=== PATIENT | female | born 1985 | race African-American/Black ===

== ENCOUNTER 2016-09-15 14:40 | Emergency (ER) | payer MEDICAID, OTHER ==
[~2016-09-15] VITALS: Ht 175.3 cm; Wt 68.0 kg
[~2016-09-15 14:40] MED LIST: CYCL1TAB29 PO; IBUP600T26 PO; MOTR200T4 PO; ROBA750T3 PO
[2016-09-15 14:41] VITALS: BP 119/67; PULSE 72; RESP 16; TEMP 99; O2SAT 100
--- NOTE | 2016-09-15 15:03 | PD ---
Physical Exam Date Seen by Provider: Sep 15, 2016 Time Seen by Provider: 14:53 Narrative 31 y/o female presents with 1 week history right upper jaw pain extending into the right ear for the past week. Patient denies fever, chills, or difficulty swallowing. Patient has Hx. [place] tooth pain. Pain worse at night and first AM. Worse with Chewing. V/S Stable. Patient awaiting Bed placement. Data Data Last Documented VS Vital Signs Date Time Temp Pulse Resp B/P Pulse Ox O2 Delivery O2 Flow Rate FiO2 09/15/16 14:41 99.0 72 16 119/67 100 Room Air [facility] Medical Record Reviewed: Yes Supervised Visit with JHON: Yes Condition: Stable Ramez Dillon Sep 15, 2016 15:03
[2016-09-15] MEDS ORDERED: PERI0.126 SWISH-SPIT (15:13)
[2016-09-15] MEDS ORDERED: CLIN1CAP5 PO (15:13)
[2016-09-15] MEDS ORDERED: IBUP800T23 PO (15:13)
--- NOTE | 2016-09-15 15:14 | PD ---
HPI Chief Complaint: Oral / Dental Pain or Problem Time Seen by Provider: 15:12 Travel History International Travel<30 days: No Contact w/Intl Traveler<30days: No Traveled to known affect area: No History of Present Illness HPI 31-year-old female presents to the emergency Department with complaint of right upper tooth pain times one week. Denies fever, chills, nausea, vomiting. Denies facial edema or erythema. Pain is worse with chewing. Pain radiates to the right ear. Allergies to amoxicillin and penicillin. No other modifying factors or associated signs and symptoms. PFSH Past Medical History Anxiety: Yes ?: Not : 5 Para: 5 Miscarriage: 1 Tubal Ligation: Yes Past Surgical History Other Surgery: No Social History Alcohol Use: Yes (SOCIALLY) Tobacco Use: Yes (05/28 PPD) Substance Use: No (DENIES) Allergies-Medications (Allergen,Severity, Reaction): Coded Allergies: Amoxicillin (Verified Allergy, Severe, Shortness of Breath, 06/28/14) Penicillin (Verified Allergy, Severe, Anaphylaxis, 06/28/14) Reported Meds & Prescriptions Reported Meds & Active Scripts Active Peridex Liq (Chlorhexidine Gluconate (Mouth) Liq) 0.12% Soln 15 Ml SWISH-SPIT BID 10 Days Ibuprofen 800 Mg Tab 800 Mg PO Q6HR PRN Clindamycin (Clindamycin HCl) 150 Mg Cap 450 Mg PO Q6H 10 Days Motrin Ib (Ibuprofen) 200 Mg Tab 600 Mg PO Q6H PRN Flexeril (Cyclobenzaprine HCl) 10 Mg Tab 10 Mg PO TID PRN Robaxin-750 (Methocarbamol) 750 Mg Tab 750 Mg PO QID PRN Ibuprofen 600 Mg Tab 600 Mg PO TID PRN Review of Systems Except as stated in HPI: all other systems reviewed are Neg Physical Exam Narrative GENERAL: Well-nourished, well-developed female patient, in no acute distress; afebrile, nontoxic-appearing SKIN: Warm and dry. HEAD: Atraumatic. Normocephalic. No facial edema, erythema, tenderness on palpation. No lymphadenopathy. EYES: Pupils equal and round. No scleral icterus. No injection or drainage. ENT: Mucosa pink and moist. Airway patent. MOUTH: Mucous membranes moist, no lesions, tongue and gums appear normal. Right upper dentalgia with multiple dental caries; right upper third molar with large dental caries and tenderness on palpation; surrounding gingiva is without erythema, edema, drainage; no obvious abscess noted. NECK: Trachea midline. No lymphadenopathy. CARDIOVASCULAR: Regular rate. RESPIRATORY: No accessory muscle use. GASTROINTESTINAL: Flat. MUSCULOSKELETAL: No obvious deformities. No clubbing. No cyanosis. No edema. NEUROLOGICAL: Awake and alert. Oriented 3. No obvious cranial nerve deficits. Motor grossly within normal limits. Normal speech. PSYCHIATRIC: Appropriate mood and affect; insight and judgment normal. Data Data Last Documented VS Vital Signs Date Time Temp Pulse Resp B/P Pulse Ox O2 Delivery O2 Flow Rate FiO2 09/15/16 14:41 99.0 72 16 119/67 100 Room Air [facility] Medical Decision Making Medical Screen Exam Complete: Yes Emergency Medical Condition: Yes Medical Record Reviewed: Yes Differential Diagnosis Dentalgia, infected dental caries, dental abscess, gingivitis Narrative Course 31-year-old female with right upper third molar dentalgia. Multiple dental caries noted. No obvious abscess noted. No facial erythema or edema. Patient is afebrile and nontoxic appearing. Denies fever, chills, nausea, vomiting. Emergency dental information sheet provided. Allergies to amoxicillin and penicillin. Clindamycin, Peridex mouth rinse, ibuprofen prescribed for home. Instructed patient to follow up with dentist. Patient verbalizes understanding and agreement with treatment plan. Patient is medically cleared and stable for discharge. Discussed reasons to return to the emergency department. Instructed patient to follow up with primary care provider. Patient agrees with treatment plan. The patients vital signs are stable and the patient is stable for outpatient follow-up and treatment. Patient discharged home, stable and in no acute distress. Diagnosis Primary Impression: Dentalgia Referrals: Dentist Primary Care Physician Patient Instructions: Dental Abscess (ED), Dental Caries (ED), General Instructions, Toothache (ED) Departure Forms: Tests/Procedures, Work Release Enter return to work date: Sep 16, 2016 Additional Instructions: Complete full course of antibiotics Ibuprofen as directed and as needed to reduce pain and inflammation Use Peridex as directed for oral hygiene Warm compresses to the affected area Follow-up with dentist Follow-up with primary care provider Return to emergency department immediately with worsening of symptoms Med/Other Pt SpecificInfo: Prescription(s) given Scripts Chlorhexidine Gluconate (Mouth) Liq (Peridex Liq)0.12% Soln15 Ml SWISH-SPIT BID 10 Days Ref 0 Prov:Christie De Jesus 09/15/16 Ibuprofen 800 Mg [id number] Mg PO Q6HR PRN (PAIN) #30 TAB Ref 0 Prov:Christie De Jesus 09/15/16 Clindamycin 150 Mg [id number] Mg PO Q6H 10 Days Ref 0 Prov:Christie De Jesus 09/15/16 Disposition: 01 DISCHARGE HOME Condition: Stable Christie De Jesus Sep 15, 2016 15:13
[2016-09-15] MEDS ORDERED: birth control (15:37)
== END 2016-09-15 15:29 | disposition home or self-care (01) ==
LOC: NEPK 14:40
DX: K08.89 Other specified disorders of teeth and supporting structures (principal); F17.210 Nicotine dependence, cigarettes, uncomplicated; Z88.0 Allergy status to penicillin
CPT/HCPCS: 99282

== ENCOUNTER 2017-02-14 20:45 | Emergency (ER) | payer MEDICAID ==
[~2017-02-14] VITALS: Ht 175.3 cm; Wt 77.0 kg
[~2017-02-14 20:45] MED LIST changes: +CLIN1CAP5 PO; -CYCL1TAB29 PO; -IBUP600T26 PO; +IBUP800T23 PO; -MOTR200T4 PO; +PERI0.126 SWISH-SPIT; -ROBA750T3 PO; +birth control
[2017-02-14 20:47] VITALS: BP 116/68; PULSE 82; RESP 15; TEMP 98.9; O2SAT 98
--- NOTE | 2017-02-14 20:54 | PD ---
Physical Exam Date Seen by Provider: Feb 14, 2017 Time Seen by Provider: 20:53 Narrative 31-year-old Afro-Turkmen female presents to emergency Department with nausea and vomiting since eating at [facility] at 8:00 this morning. Patient has no fever, chills or urinary symptoms. Vital signs stable. Patient is awaiting bed placement. Data Data Last Documented VS Vital Signs Date Time Temp Pulse Resp B/P (MAP) Pulse Ox O2 Delivery O2 Flow Rate FiO2 02/14/17 20:47 98.9 82 15 116/68 (84) 98 Room Air [facility] Medical Record Reviewed: Yes Supervised Visit with JHON: Yes Condition: Stable Ramez Dillon Feb 14, 2017 20:54
[2017-02-14] MEDS ORDERED: SODIUM CHLOR 0.9% 1000 ML INJ 1,000 ML IV SCH (21:20)
[2017-02-14] MEDS ORDERED: SODIUM CHLORIDE 0.9% FLUSH 10 ML FLUSH IV FLUSH PRN (21:30)
[2017-02-14] MEDS ORDERED: ONDANSETRON HCL 4 MG/2 ML VIAL IVP ONE (21:30)
[2017-02-14 22:12] LABS: AUTOMATED NEUTROPHIL # 4.4 TH/MM3 (1.8-7.7); BASOPHIL % 0.4 % (0.0-2.0); EOSINOPHIL # 0.1 TH/MM3 (0-0.4); EOSINOPHIL % 0.8 % (0.0-4.0); HEMATOCRIT 49.5 % (35.0-46.0); LYMPH % 33.3 % (9.0-44.0); LYMPHOCYTE # 2.5 TH/MM3 (1.0-4.8); MEAN CELL VOLUME 93.2 FL (80.0-100.0); MEAN CORPUSCULAR HEMOGLOBIN 31.2 PG (27.0-34.0); MEAN CORPUSCULAR HGB CONC 33.5 % (32.0-36.0); MONO % 6.3 % (0.0-8.0); NEUT % 59.2 % (16.0-70.0); RED BLOOD COUNT 5.31 MIL/MM3 (4.00-5.30); RED CELL DISTRIBUTION WIDTH 13.1 % (11.6-17.2); WHITE BLOOD COUNT 7.4 TH/MM3 (4.0-11.0)
[2017-02-14 22:14] LABS: BACTERIA, URINE MOD /hpf; BLOOD, URINE NEG (NEG); COMMENT (UR) CULTURE INDICATED; CULTURE IF INDICATED CULTURE INDICATED; GLUCOSE,URINE NEG (NEG); KETONE, URINE NEG (NEG); MUCUS URINE FEW /lpf (OCC); NITRITE,URINE POS (NEG); PH, URINE 6.5 (5.0-8.5); SQUAMOUS EPITHELIAL CELL URINE 4 /hpf (0-5); URINE COLOR YELLOW (YELLW/STRAW)
[2017-02-14 22:25] LABS: HEMO FLAGS AUTO DIFF; PLATELET COUNT 188 TH/MM3 (150-450)
[2017-02-14 22:26] LABS: ALT (GPT) 27 U/L (10-53)
[2017-02-14 22:27] LABS: ANION GAP 5 MEQ/L (5-15); AST (GOT) 44 U/L (15-37); BICARBONATE 24.2 MEQ/L (21.0-32.0); BLOOD UREA NITROGEN 10 MG/DL (7-18); CHLORIDE 106 MEQ/L (98-107); GLOMERULAR FILTRATION RATE 96 ML/MIN (>89); SODIUM (NA) 135 MEQ/L (136-145)
[2017-02-14 22:28] LABS: ALKALINE PHOSPHATASE 58 U/L (45-117); POTASSIUM 4.5 MEQ/L (3.5-5.1); TOTAL BILIRUBIN ADULT 0.5 MG/DL (0.2-1.0)
[2017-02-14 22:49] LABS: PLATELET ESTIMATE SMEAR LOW (NORMAL); PLATELET MORPHOLOGY NORMAL (NORMAL); SCAN/DIFF AUTO DIFF CONFIRMED
[2017-02-15] MEDS ORDERED: CIPR-9 PO (00:01)
--- NOTE | 2017-02-15 00:01 | PD ---
HPI Chief Complaint: GI Complaint Time Seen by Provider: 21:12 Travel History International Travel<30 days: No Contact w/Intl Traveler<30days: No Traveled to known affect area: No History of Present Illness HPI Patient is a 31-year-old female comes in complaining of nausea, vomiting, diarrhea. She says this started after eating at [employer] earlier today. She denies any abdominal pain. She says that her boss told her she needed to come to the emergency department. She says the last time she had diarrhea was about 6:30 PM. Last time she vomited was a little bit before then. She denies any blood in her stool or her vomit. She says she is afraid to try to eat or drink anything. [facility] Past Medical History Anxiety: Yes ?: Not LMP: 01/18/17 : 5 Para: 5 Miscarriage: 1 Tubal Ligation: Yes (2011) Past Surgical History Other Surgery: No Social History Alcohol Use: No Tobacco Use: Yes (CIGARS 2/DAY) Substance Use: No (DENIES) Allergies-Medications (Allergen,Severity, Reaction): Coded Allergies: amoxicillin (Unverified Allergy, Severe, Shortness of Breath, 02/14/17) penicillin G (Unverified Allergy, Severe, Anaphylaxis, 02/14/17) Reported Meds & Prescriptions Reported Meds & Active Scripts Active No Active Prescriptions or Reported Medications Review of Systems Except as stated in HPI: all other systems reviewed are Neg General / Constitutional: No: Fever, Chills HENT: No: Headaches, Lightheadedness Cardiovascular: No: Chest Pain or Discomfort Respiratory: No: Shortness of Breath Gastrointestinal: Positive: Nausea, Vomiting, Diarrhea, No: Abdominal Pain Genitourinary: No: Dysuria Musculoskeletal: No: Edema, Pain Skin: No Rash, No Change in Pigmentation Neurologic: No: Weakness, Dizziness Physical Exam Narrative GENERAL: Awake and alert, in no acute distress. SKIN: Focused skin assessment warm/dry. HEAD: Atraumatic. Normocephalic. EYES: Pupils equal and round. No scleral icterus. ENT: No nasal bleeding or discharge. Mucous membranes pink and moist. NECK: Trachea midline. No JVD. CARDIOVASCULAR: Regular rate and rhythm. No murmur appreciated. RESPIRATORY: No accessory muscle use. Clear to auscultation. Breath sounds equal bilaterally. GASTROINTESTINAL: Abdomen soft, non-tender, nondistended. MUSCULOSKELETAL: No obvious deformities. No clubbing. No cyanosis. No edema. NEUROLOGICAL: Awake and alert. No obvious cranial nerve deficits. Motor grossly within normal limits. Normal speech. PSYCHIATRIC: Appropriate mood and affect; insight and judgment normal. Data Data Last Documented VS Vital Signs Date Time Temp Pulse Resp B/P (MAP) Pulse Ox O2 Delivery O2 Flow Rate FiO2 02/14/17 20:47 98.9 82 15 116/68 (84) 98 Room Air Orders Orders Complete Blood Count With Diff (02/14/17 21:20) Comprehensive Metabolic Panel (02/14/17 21:20) Urinalysis - C+S If Indicated (02/14/17 21:20) Iv Access Insert/Monitor (02/14/17 21:20) Ecg Monitoring (02/14/17 21:20) Oximetry (02/14/17 21:20) Ondansetron Inj (Zofran Inj) (02/14/17 21:30) Sodium Chlor 0.9% 1000 Ml Inj (Ns 1000 M (02/14/17 21:20) Sodium Chloride 0.9% Flush (Ns Flush) (02/14/17 21:30) Ed Urine Pregnancytest Poc (02/14/17 21:20) Urine Culture (02/14/17 21:45) Labs Laboratory Tests Test 02/14/17 21:45 White Blood Count 7.4 TH/MM3 Red Blood Count 5.31 MIL/MM3 Hemoglobin 16.6 GM/DL Hematocrit 49.5 % Mean Corpuscular Volume 93.2 FL Mean Corpuscular Hemoglobin 31.2 PG Mean Corpuscular Hemoglobin Concent 33.5 % Red Cell Distribution Width 13.1 % Platelet Count 188 TH/MM3 Mean Platelet Volume 10.4 FL Neutrophils (%) (Auto) 59.2 % Lymphocytes (%) (Auto) 33.3 % Monocytes (%) (Auto) 6.3 % Eosinophils (%) (Auto) 0.8 % Basophils (%) (Auto) 0.4 % Neutrophils # (Auto) 4.4 TH/MM3 Lymphocytes # (Auto) 2.5 TH/MM3 Monocytes # (Auto) 0.5 TH/MM3 Eosinophils # (Auto) 0.1 TH/MM3 Basophils # (Auto) 0.0 TH/MM3 CBC Comment AUTO DIFF Differential Comment AUTO DIFF CONFIRMED Platelet Estimate LOW Platelet Morphology Comment NORMAL Urine Color YELLOW Urine Turbidity HAZY Urine pH 6.5 Urine Specific [place] 1.020 Urine Protein NEG mg/dL Urine Glucose (UA) NEG mg/dL Urine Ketones NEG mg/dL Urine Occult Blood NEG Urine Nitrite POS Urine Bilirubin NEG Urine Urobilinogen LESS THAN 2.0 MG/DL Urine Leukocyte Esterase SMALL Urine RBC 3 /hpf Urine WBC 8 /hpf Urine Squamous Epithelial Cells 4 /hpf Urine Amorphous Sediment RARE Urine Bacteria MOD /hpf Urine Mucus FEW /lpf Microscopic Urinalysis Comment CULTURE INDICATED Blood Urea Nitrogen 10 MG/DL Creatinine 0.83 MG/DL Random Glucose 79 MG/DL Total Protein 8.5 GM/DL Albumin 4.2 GM/DL Calcium Level 9.2 MG/DL Alkaline Phosphatase 58 U/L Aspartate Amino Transf (AST/SGOT) 44 U/L Alanine Aminotransferase (ALT/SGPT) 27 U/L Total Bilirubin 0.5 MG/DL Sodium Level 135 MEQ/L Potassium Level 4.5 MEQ/L Chloride Level 106 MEQ/L Carbon Dioxide Level 24.2 MEQ/L Anion Gap 5 MEQ/L Estimat Glomerular Filtration Rate 96 ML/MIN [facility] Medical Decision Making Medical Screen Exam Complete: Yes Emergency Medical Condition: Yes Medical Record Reviewed: Yes Differential Diagnosis Gastroenteritis versus gastritis versus infectious diarrhea versus colitis versus UTI Narrative Course Patient is a 31-year-old female comes in complaining of nausea, vomiting, diarrhea. Exam shows no acute abnormality is, no abdominal tenderness. IV established, labs sent. Labs show no acute abnormalities. Urinalysis is positive for UTI. IV fluids, Zofran. She reports feeling better. She is able to drink Gatorade without vomiting. She'll be discharged with a prescription for antibiotics. She is advised to drink plenty of fluids. Advised to rest and eat a bland diet. Advised follow- up with a primary care doctor. Advised to return to the ED as needed for any worsening symptoms. Diagnosis Primary Impression: Gastroenteritis Additional Impression: UTI (urinary tract infection) Qualified Codes: N30.00 - Acute cystitis without hematuria Patient Instructions: Acute Nausea and Vomiting (ED), General Instructions, Urinary Tract Infection in Women (ED) Additional Instructions: Drink plenty of fluids. Take all of your antibiotics. Follow up with a primary care doctor. If you are hungry, eat a bland diet. Return to the ED as needed for any worsening symptoms. Scripts Ciprofloxacin (Cipro) 500 Mg Tab 500 MG PO BID for Infection for 3 Days, #6 TAB 0 Refills Prov: Edie Suarez MD 02/15/17 Disposition: 01 DISCHARGE HOME Condition: Stable Edie Suarez MD Feb 15, 2017 00:01
== END 2017-02-15 00:21 | disposition home or self-care (01) ==
LOC: NEPD 20:45
DX: K52.9 Noninfective gastroenteritis and colitis, unspecified (principal); N39.0 Urinary tract infection, site not specified; B96.20 Unspecified Escherichia coli [E. coli] as the cause of diseases classified elsewhere; F41.9 Anxiety disorder, unspecified; F17.290 Nicotine dependence, other tobacco product, uncomplicated
CPT/HCPCS: 80053; 81001; 84703; 85025; 87077; 87086; 87186; 96374; 99284; J2405; J7030

== ENCOUNTER 2017-02-17 06:02 | Emergency (ER) | payer MEDICAID ==
[~2017-02-17] VITALS: Ht 175.3 cm; Wt 73.5 kg
[~2017-02-17 06:02] MED LIST changes: +CIPR-9 PO; -CLIN1CAP5 PO; -IBUP800T23 PO; -PERI0.126 SWISH-SPIT; -birth control
[2017-02-17 06:03] VITALS: BP 112/54; PULSE 72; RESP 16; TEMP 98.9; O2SAT 99
--- NOTE | 2017-02-17 06:26 | PD ---
HPI Chief Complaint: Medical Clearance Time Seen by Provider: 06:24 Travel History International Travel<30 days: No Contact w/Intl Traveler<30days: No Traveled to known affect area: No History of Present Illness HPI 31-year-old female presents to the emergency department for a work note. She came to the emergency department and was treated for UTI and now states that the antibiotics are causing her to be excessively tired. She states she has an appointment with her primary care physician Saturday but she has to work today. She denies any other complaints or concerns. History Social History Alcohol Use: No Tobacco Use: Yes (CIGARS 2/DAY) Allergies-Medications (Allergen,Severity, Reaction): Coded Allergies: amoxicillin (Unverified Allergy, Severe, Shortness of Breath, 02/17/17) penicillin G (Unverified Allergy, Severe, Anaphylaxis, 02/17/17) Reported Meds & Prescriptions Reported Meds & Active Scripts Active Cipro (Ciprofloxacin HCl) 500 Mg Tab 500 Mg PO BID 3 Days Review of Systems Except as stated in HPI: all other systems reviewed are Neg Physical Exam Narrative 31-year-old female well-developed well-nourished in no acute distress. GENERAL: Well-nourished, well-developed patient. SKIN: Focused skin assessment warm/dry. HEAD: Normocephalic. EYES: No scleral icterus. No injection or drainage. NECK: Supple, trachea midline. No JVD or lymphadenopathy. MUSCULOSKELETAL: No cyanosis, or edema. BACK: Nontender without obvious deformity. No CVA tenderness. Data Data Last Documented VS Vital Signs Date Time Temp Pulse Resp B/P (MAP) Pulse Ox O2 Delivery O2 Flow Rate FiO2 02/17/17 06:03 98.9 72 16 112/54 (73) 99 Room Air MDM Medical Screen Exam Complete: Yes Emergency Medical Condition: No Differential Diagnosis Work note request recent treatment for UTI Narrative Course 31-year-old female presents to the emergency department for a work note. She came to the emergency department and was treated for UTI and now states that the antibiotics are causing her to be excessively tired. She states she has an appointment with her primary care physician Saturday but she has to work today. She denies any other complaints or concerns. Pt advised to follow up Saturday as stated in discharge paperwork from 02/14. Primary Impression: Encounter for medical screening examination Disposition: 01 DISCHARGE HOME Condition: Stable An Dwyer Feb 17, 2017 06:26
== END 2017-02-17 06:41 | disposition left against medical advice (07) ==
LOC: NEPD 06:02
DX: R53.83 Other fatigue (principal)
CPT/HCPCS: 99281

== ENCOUNTER 2017-06-07 11:01 | Emergency (ER) | payer MEDICAID ==
[~2017-06-07] VITALS: Ht 175.3 cm; Wt 75.9 kg
[2017-06-07 11:04] VITALS: BP 128/60; PULSE 73; RESP 16; TEMP 98.5; O2SAT 98
--- NOTE | 2017-06-07 13:57 | PD ---
HPI Chief Complaint: ENT Complaint Time Seen by Provider: 13:51 Travel History International Travel<30 days: No Contact w/Intl Traveler<30days: No Traveled to known affect area: No History of Present Illness HPI This is a 32-year-old female presents for evaluation of sore throat and left ear pain. Symptoms started yesterday. Pain is mild, aching, aggravated by swallowing. Denies fevers, chills, cough, congestion, rash, recent travel. No sick contacts. No other complaints at this time. PFSH Past Medical History Anxiety: Yes ?: Not LMP: 05/15/2017 : 5 Para: 5 Miscarriage: 1 Tubal Ligation: Yes (2011) Past Surgical History Other Surgery: No Social History Alcohol Use: No Tobacco Use: Yes (CIGARS 2/DAY) Substance Use: No (DENIES) Allergies-Medications (Allergen,Severity, Reaction): Coded Allergies: amoxicillin (Unverified Allergy, Severe, Shortness of Breath, 06/07/17) penicillin G (Unverified Allergy, Severe, Anaphylaxis, 06/07/17) Reported Meds & Prescriptions Reported Meds & Active Scripts Active No Active Prescriptions or Reported Medications Review of Systems Except as stated in HPI: all other systems reviewed are Neg Physical Exam Narrative GENERAL: Well-developed well-nourished female in no acute distress SKIN: Warm and dry. HEAD: Atraumatic. Normocephalic. EYES: Pupils equal and round. No scleral icterus. No injection or drainage. ENT: No nasal bleeding or discharge. Mucous membranes pink and moist. There is mild oropharyngeal erythema without exudate. Tympanic membranes bilaterally. Normal without erythema, air-fluid level. NECK: Trachea midline. No JVD. There is no lymphadenopathy. Neck supple full range of motion. CARDIOVASCULAR: Regular rate and rhythm. No murmur appreciated. RESPIRATORY: No accessory muscle use. Clear to auscultation. Breath sounds equal bilaterally. Data Data Last Documented VS Vital Signs Date Time Temp Pulse Resp B/P (MAP) Pulse Ox O2 Delivery O2 Flow Rate FiO2 06/07/17 14:00 16 06/07/17 11:04 98.5 73 128/60 (82) 98 Orders Orders Group A Rapid Strep Screen (06/07/17 13:55) Strep Culture (Group A) (06/07/17 14:04) Ed Discharge Order (06/07/17 14:57) [facility] Medical Decision Making Medical Screen Exam Complete: Yes Emergency Medical Condition: Yes Medical Record Reviewed: Yes Differential Diagnosis Pharyngitis, tonsillitis, peritonsillar abscess, infectious mononucleosis, herpangina, epiglottitis, retropharyngeal abscess, otitis media Narrative Course 29-year-old female today history of sore throat left ear pain. Examination reveals mild oropharyngeal erythema. Otherwise examination is unremarkable. Rapid strep screen ordered. Rapid strep screen is negative. Patient appears to have a viral pharyngitis. Stable for discharge. Diagnosis Primary Impression: Pharyngitis Additional Instructions: Stay well hydrated well-nourished, get plenty of rest. Tylenol or Motrin for pain. Follow-up with primary care physician as needed and return for any emergent medical conditions. Med/Other Pt SpecificInfo: No Change to Meds Scripts No Active Prescriptions or Reported Meds Disposition: 01 DISCHARGE HOME Condition: Stable Delbert Li Jun 07, 2017 13:57
== END 2017-06-07 14:58 | disposition home or self-care (01) ==
LOC: NEPD 11:01
DX: J02.9 Acute pharyngitis, unspecified (principal); H92.02 Otalgia, left ear; F17.290 Nicotine dependence, other tobacco product, uncomplicated
CPT/HCPCS: 87081; 87880; 99283

== ENCOUNTER 2017-06-26 16:53 | Emergency (ER) | payer OTHER, MEDICAID ==
[~2017-06-26] VITALS: Ht 175.3 cm; Wt 79.0 kg
[2017-06-26 16:58] VITALS: BP 116/62; PULSE 77; RESP 16; TEMP 98.4; O2SAT 99
[2017-06-26] MEDS ORDERED: KETOROLAC TROMETHAMINE 60 MG/2 ML (IM) VIAL IM ONE (17:30)
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
[2017-06-26] MEDS ORDERED: LORazepam 2 MG/ML VIAL IM ONE (18:30)
--- NOTE | 2017-06-26 19:52 | RADRPT ---
EXAM DATE/TIME: 06/26/2017 19:14 [facility] COMPARISON: CT CERVICAL SPINE W/O CONTRAST, June 26, 2017, 17:57. INDICATIONS : Trauma. Neck pain. Abnormal CT MEDICAL HISTORY : None. SURGICAL HISTORY : Tubal ligation. ENCOUNTER: Initial ACUITY: 1 day PAIN SCORE: 5/10 LOCATION: Cervical TECHNIQUE: Multiplanar, multisequence MRI examination of the cervical spine was performed. FINDINGS: VERTEBRAE: There is evidence of a mild chronic compression deformity involving C6. No acute compression fracture is noted. There is straightening of the normal cervical lordosis. ALIGNMENT: No evidence of subluxation. CORD: Normal configuration and signal. POST FOSSA: The cerebellar tonsils are normal in position. C2-C3: The thecal sac has a normal configuration. There is no evidence of disc herniation or spinal canal s tenosis. The neural foramina are patent bilaterally. C3-C4: The thecal sac has a normal configuration. There is no evidence of disc herniation or spinal canal s tenosis. The neural foramina are patent bilaterally. C4-C5: There is a tiny central disc bulge which results in minimal effacement of the central portion of the thecal sac anteriorly. This appears to touch the anterior aspect of the cervical cord but results in no spinal stenosis or neural foraminal narrowing. C5-C6: Minimal diffuse disc bulge is noted but results in no spinal stenosis or neural foraminal narrowing. C6-C7: Very minimal diffuse disc bulge is noted and results in no spinal stenosis or neural foraminal narrow ing. C7-T1: The thecal sac has a normal configuration. There is no evidence of disc herniation or spinal canal s tenosis. The neural foramina are patent bilaterally. CONCLUSION: 1. Mild chronic compression deformity involving C6. 2. Tiny central disc bulge at C4-5 which touches the anterior aspect of the cervical cord but results in no spinal stenosis or neural foraminal narrowing. 3. Minimal diffuse disc bulge at C5-6 and very minimal diffuse disc bulge at C6-7 which result in no spinal stenosis or neural foraminal narrowing. 4. Straightening of the normal cervical lordosis. Miguel Grier MD on June 26, 2017 at 19:39 Board Certified Radiologist. This report was verified electronically.
[2017-06-26] MEDS ORDERED: CYCL10TA PO (19:59)
[2017-06-26] MEDS ORDERED: NORC5TAB PO (19:59)
== END 2017-06-26 20:30 | disposition home or self-care (01) ==
LOC: NEPD 16:53
DX: S16.1XXA Strain of muscle, fascia and tendon at neck level, initial encounter (principal); M54.5 Low back pain; V49.40XA Driver injured in collision with unspecified motor vehicles in traffic accident, initial encounter; Y92.488 Other paved roadways as the place of occurrence of the external cause
CPT/HCPCS: 72125; 72141; 72170; 96372; 99285; J1885; J2060